=== PATIENT | male | born 2000 | race Caucasian/White ===

== ENCOUNTER 2024-06-01 08:05 | Emergency (ER) | payer OTHER, SELFPAY ==
[2024-06-01 08:09] VITALS: BP 126/69; PULSE 79; RESP 18; TEMP 36.6; O2SAT 99; BMI 29.0
--- NOTE | 2024-06-01 08:51 | ED.GENADULT ---
HPI - General Adult General Time Seen by Provider: 08:51 Date Seen: 06/01/24 Chief complaint: Dizziness/Vertigo Stated complaint: dizziness/loss of balance Time Seen by Provider: 06/01/24 08:51 Source: patient and RN notes reviewed Mode of arrival: ambulatory Limitations: no limitations History of Present Illness HPI narrative: This 23-year-old male is coming into the ER with concern of sense of imbalance. He worked out for an hour yesterday afternoon and started noticing after that that he felt imbalanced, like he might fall. It was not a spinning sensation. He had no associated visual change or headaches. He is not been ill with cough or cold symptoms, no fevers or chills. About 2 weeks ago he had a spell of 2 weeks around Thanksgiving where he was having some blood with wiping. He does note sometimes there was straining. He was not having pain. This is now resolved, he thinks it might have been a hemorrhoid. Again, he has no symptoms now, there was never any associated abdominal pain. He notes a while back with lifting he did get what he thought was a pinched nerve in his left neck we had pain going down the arm some numbness tingling of the shoulder. That did go away. Yesterday was feeling a little tired doing the weights and he was doing arms and pectoralis. He only did 2 sets as he was feeling a little strained in did not want this to happen again. He also notes last night that his left face maybe felt a little funny, not as bad as coming out of anesthesia from the dentist but maybe a little numb tingly sensation. It is maybe just above his eyebrow now. He also notes that he is extremely tired, went to bed at 2:00 a.m. and was awakened at 6:30 a.m. to his roommate typing away. He has felt foggy in his head but notes he took a quiz this morning on his phone and was not anymore foggy than what he normally is. Told nursing staff that his symptoms felt worse with turning is had but again he does not have any spinning sensation, more of an imbalance sense. He thinks his left eye might feel little droopy in comparison to the right, meaning his upper eyelid. In discussion with patient, it did come about that his mom had a glioblastoma of the temporal lobe. She was having headaches, they did catch it and she has subsequently had removed. He notes that all of her follow-up scans have been reassuring. 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 Related Data Allergies Allergy/AdvReac Type Severity Reaction Status Date / Time No Known Allergies Allergy Verified 06/01/24 08:16 Review of Systems Status of ROS: Reports: 6 or more systems reviewed and unremarkable except as noted in History and below Exam Const: Vital Signs, click to edit/add: Vital Signs - 24 hr 06/01/24 08:09 Temperature 97.8 F Pulse Rate [Left] 79 Respiratory Rate 18 Blood Pressure [Ri ght Upper Arm] 126/69 Pulse Oximetry 99 Oxygen Delivery Me thod Room Air This 23-year-old male is alert, interactive, no apparent distress. He can ambulate in the room for me he has normal tandem gait in actually does a backwards tandem gait back to the bed. Pupils are equal round, extraocular muscles intact, no nystagmus. Symmetrical facial function, normal sensation, speech is normal and intact. TMs canals normal, no abnormalities noted. Neck supple, no adenopathy, no thyromegaly masses or nodules. Lungs are clear, good air entry, no wheezing crackles. CV regular rate and rhythm, no murmur, normal S1-S2, no S3-S4. Abdomen is soft, nontender, nondistended, no organomegaly. Skin visualized without rash, no lower extremity edema. He has good muscle tone. Strength is 5/5 and symmetric throughout both upper and lower extremities. He has no tremors. Normal [id number] without any dysmetria. Documenting provider has reviewed patient's vital signs: yes Course Course ED Course: Patient and I discussed workup. Obviously with his mom's history there has to be some concern mass. We did discuss with head CT imaging that it can rule out large things like prior strokes, bleeds, larger tumors. He obviously is going to have some concern given his mom's history. I do think that doing a head CT to rule out acute intracranial pathology is important. We did discuss that if he has ongoing issues, may need MRI imaging to completely rule out pathology in the brain but do not think we need to proceed with this emergently. His neurologic exam is normal, he certainly is tired and can affect are performance in status. I think at this time will do baseline labs given some of his complaints in the recent past and proceed with head CT imaging. He is in agreement with this plan. Reevaluation(s) Time of Reevaluation #1: 10:30 Reevaluation #1: Have reviewed with patient his normal head CT, provided him a copy of the report. Reviewed that labs are not showing any anemia, his hemoglobin looks great. He definitely looks tired, can see dark circles under his eyes. We discussed sleep and sleep hygiene. Patient is certainly can feel lightheaded, woozy, dizzy, many symptoms when fatigued or exhausted. I would favor him trying to catch up on his sleep, see how he is feeling. I do not think he needs further emergent evaluation at this time. Vital Signs Vital signs: Initial Vital Signs Temperature 97.8 F 06/01/24 08:09 Temperature Source Temporal Artery Scan 06/01/24 08:09 Pulse Rate 79 06/01/24 08:09 Respiratory Rate 18 06/01/24 08:09 Blood Pressure 126/69 06/01/24 08:09 Blood Pressure Mean 88 06/01/24 08:09 Blood Pressure Position Sitting 06/01/24 08:09 Pulse Oximetry 99 06/01/24 08:09 Oxygen Delivery Method Room Air 06/01/24 08:09 Vital Signs Temperature 97.8 F 06/01/24 08:09 Pulse Rate 79 06/01/24 08:09 Respiratory Rate 18 06/01/24 08:09 Blood Pressure 126/69 06/01/24 08:09 Pulse Oximetry 99 06/01/24 08:09 Oxygen Delivery Method Room Air 06/01/24 08:09 Temperature 97.8 F 06/01/24 08:09 Pulse Rate 79 06/01/24 08:09 Respiratory Rate 18 06/01/24 08:09 Blood Pressure 126/69 06/01/24 08:09 Pulse Oximetry 99 06/01/24 08:09 Oxygen Delivery Method Room Air 06/01/24 08:09 Medical Decision Making Lab Data Lab results reviewed: Yes I reviewed the patient's lab results Labs: Lab Results 06/01/24 Range/Units 09:30 WBC 7.14 (4.50-11.00) K/uL RBC 5.88 (4.30-5.90) m/uL Hgb 16.7 (13.5-17.5) gm/dL Hct 49.2 (37.0-53.0) % MCV 84 (80-100) fL MCH 28 (26-34) pg MCHC 34 (32-36) gm/dL RDW Coeff of Vidhya 12.4 (11.5-15.5) % Plt Count 337 (140-440) K/uL Neut % (Auto) 71.1 (42.0-72.0) % Lymph % (Auto) 21.6 (20-44) % [place] % (Auto) 5.2 (0.0-11.0) % Eos % (Auto) 1.7 (0.0-7.0) % Baso % (Auto) 0.3 (0.0-3.0) % Neut # (Auto) 5.08 (1.7-7.0) K/uL Lymph # (Auto) 1.54 (0.90-2.90) K/uL [place] # (Auto) 0.40 (0.00-0.90) K/UL Eos # (Auto) 0.12 (0.00-0.50) K/uL Baso # (Auto) 0.02 (0.00-0.30) K/uL Abs Immat Gran (auto) 0.01 (0.00-0.30) K/uL Imm/Tot Granulo (auto) 0.1 % Sodium 141 (135-149) mmol/L Potassium 4.4 (3.6-5.1) mmol/L Chloride 100 (96-114) mmol/L Carbon Dioxide 31 (20-32) mmol/L Anion Gap 10 (7-15) mEq/L BUN 13 (5-24) mg/dL Creatinine 0.9 (0.5-1.5) mg/dL Estimated Creat Clear 121.39 Estimated GFR 125 ml/min Glucose 99 (60-115) mg/dL Calcium 9.8 (8.4-10.6) mg/dL Total Bilirubin 0.7 (0.1-1.5) mg/dL AST 45 H (12-35) U/L ALT 51 H (4-50) U/L Alkaline Phosphatase 72 (40-150) U/L C-Reactive Protein < 0.5 L (0.5-1.0) mg/dL Total Protein 8.0 (6.0-8.3) g/dL Albumin 4.9 (3.3-5.0) g/dL Imaging Data CT scan - head: Attestation: I have reviewed the pertinent imaging results. Radiologist's impression: Patient: KADEN AVELAR Facility:?[facility] Patient ID:?[id number] Site Patient ID:?[id number]. Site :?[id number] Study:?CT-Head WITHOUT-06/01/2024 9:36:26 AM Ordering Physician:?Garrett Brumfield Final Report: INDICATION: Imbalance, dizziness, tingling face and hands. COMPARISON: None. TECHNIQUE: CT of the brain / head without intravenous contrast. Multiplanar axial, coronal, and sagittal reformats were reconstructed. FINDINGS: No intracranial hemorrhage. Normal appearance of the white matter. No acute or subacute cortically based infarct. No mass or mass effect. Normal ventricles. No skull fractures. No worrisome focal bone lesion. IMPRESSION: Normal head CT. Please note that all CT scans at this facility use dose modulation, iterative reconstruction, and/or weight-based dosing when appropriate to reduce radiation dose to as low as reasonably achievable. Dictated by Rebecca Gonzales MD @ 06/01/2024 9:45:03 AM (Electronic Signature) Discharge Plan Discharge Clinical Impression: Imbalance Patient Disposition: Home, Self-Care Condition: Stable Additional Instructions: It is possible that sleep deprivation and fatigue can be contributing to your symptoms. I do think you should continue to monitor symptoms. If you have ongoing issues, concerns about your sleep, you could get referred to a sleep medicine provider through your primary care provider; we do not have sleep medicine here at [facility]. If you have ongoing concerns about her balance or your gait, next step would be to see Neurology and potentially have an MRI done. Continue to monitor for these symptoms in please seek re-evaluation if you have concerns. I do highly urge you to try to get more sleep. Activity Level: Activity as Tolerated Follow Up/Referrals: Provider,Not a Local [Primary Care Provider] - Stand Alone Forms: [employer] Info Instructions
--- NOTE | 2024-06-01 09:10 | CRLHL7_ITS ---
For Patients: As a result of the Century Cures Act, medical imaging exams and procedure reports are released immediately into your electronic medical record. You may view this report before your referring provider. If you have questions, please contact your health care provider. INDICATION: Imbalance, dizziness, tingling face and hands. COMPARISON: None. TECHNIQUE: CT of the brain / head without intravenous contrast. Multiplanar axial, coronal, and sagittal reformats were reconstructed. FINDINGS: No intracranial hemorrhage. Normal appearance of the white matter. No acute or subacute cortically based infarct. No mass or mass effect. Normal ventricles. No skull fractures. No worrisome focal bone lesion. IMPRESSION: Normal head CT. Please note that all CT scans at this facility use dose modulation, iterative reconstruction, and/or weight-based dosing when appropriate to reduce radiation dose to as low as reasonably achievable. Dictated by Rebecca Gonzales MD @ 06/01/2024 9:45:03 AM (Electronically Signed)
[2024-06-01 09:39] LABS: Basophils Absolute Auto 0.02 K/uL (0.00-0.30); Basophils Percent Auto 0.3 % (0.0-3.0); Eosinophils Absolute Auto 0.12 K/uL (0.00-0.50); Eosinophils Percent Auto 1.7 % (0.0-7.0); Hematocrit 49.2 % (37.0-53.0); Hemoglobin* 16.7 gm/dL (13.5-17.5); Immature Granulocytes Abs Auto 0.01 K/uL (0.00-0.30); Immature Granulocytes Pct Auto 0.1 %; Lymphocytes Absolute Auto 1.54 K/uL (0.90-2.90); Lymphocytes Percent Auto 21.6 % (20-44); Mean Corpuscular HGB Conc 34 gm/dL (32-36); Mean Corpuscular Hemoglobin 28 pg (26-34); Mean Corpuscular Volume 84 fL (80-100); Monocytes Percent Auto 5.2 % (0.0-11.0); Neutrophils Absolute Auto 5.08 K/uL (1.7-7.0); Neutrophils Percent Auto 71.1 % (42.0-72.0); Platelet Count* 337 K/uL (140-440); RDW Coefficient of Variation % 12.4 % (11.5-15.5); Red Blood Count 5.88 m/uL (4.30-5.90); White Blood Count* 7.14 K/uL (4.50-11.00)
[2024-06-01 10:11] LABS: Slide Review Reflex No
[2024-06-01 10:15] LABS: Albumin* 4.9 g/dL (3.3-5.0); Chloride* 100 mmol/L (96-114); Potassium* 4.4 mmol/L (3.6-5.1); Sodium* 141 mmol/L (135-149)
[2024-06-01 10:18] LABS: Alanine Aminotransferase* 51 U/L (4-50); Alkaline Phosphatase* 72 U/L (40-150); Anion Gap 10 mEq/L (7-15); Aspartate Amino Transferase* 45 U/L (12-35); Bilirubin Total* 0.7 mg/dL (0.1-1.5); Blood Urea Nitrogen* 13 mg/dL (5-24); Carbon Dioxide* 31 mmol/L (20-32); Creatinine* 0.9 mg/dL (0.5-1.5); Est. Creatinine Clearance* 121.39; Estimated Glomerular Filt Rate 125 ml/min
[2024-06-01 10:19] LABS: Calcium* 9.8 mg/dL (8.4-10.6); Glucose* 99 mg/dL (60-115)
[2024-06-01 10:53] LABS: C Reactive Protein* < 0.5 mg/dL (0.5-1.0)
== END 2024-06-01 10:45 | disposition home or self-care (01) ==
PROVIDERS: Emergency Provider Family Medicine
DX: R26.89 Other abnormalities of gait and mobility (principal)
CPT/HCPCS: 36415; 70450; 80053; 85025; 86140; 99284

== ENCOUNTER 2024-10-15 02:42 | Emergency (ER) | payer OTHER, SELFPAY ==
--- OUTSIDE RECORDS SUMMARY | 2024-10-15 02:45 | XMS_ITS | Continuity of Care Document ---
Author Organization [facility] Address [address] [place] [address] Assessment No assessment recorded. Plan of Treatment Reminders Order Date Submit Date Provider Last Modified By Organization Details Last Modified Time Details Appointments None record ed. Lab None record ed. Referral None record ed. Procedures None record ed. Surgeries None record ed. Imaging None record ed. Medication Orders None record ed. Patient TargetsNo targets recorded. Patient InstructionsNo instructions recorded. Reason for Referral None Reported. Problems Name Problem SNOMED Code Status Onset Date Resolution Date Notes Provider Name and Address Organization Details Recorded Time Pain in thoracic spine 432143828 Active 2024 LD [address], [place], [address], [facility] 12:47:44 Neck pain 51165776 Active 2024 Xavier Avalos DC [address] [place], [address], [facility] 12:47:44 Spasm of back muscles 919283683 Active 2024 Xavier Avalos DC [address] [place], [address] , [facility] 12:47:44 Cervical segmental dysfunction 642351194 Active 2024 Xavier Avalos DC [address] [place], [address], [facility] 12:47:44 Low back pain 749550970 Active 2024 Xavier Avalos DC [address], [place], [address], [facility] 12:47:44 Thoracic segmental dysfunction 632523632 Active 2024 Xavier Avalos , LD [address], [place], [address], [facility] 12:47:44 Lumbar segmental dysfunction 687748787 Active 2024 Xavier Avalos , LD [address], [place], [address], [facility] 12:47:45 Somatic dysfunction of pelvic region 971764807 Active 2024 Xavier Avalos DC [address], [place], [address], [facility] 12:48:09 Pain of right wrist 2713339434460 00 Active 2024 Xavier Avalos , LD [address], [place], [address], [facility] 12:48:18 Problem Notes None recorded. Procedures Surgical History Date Name Laterality Status Provider Name and Address Organization Details Recorded Time 09/23/19 14611: Spinal manipulation, 3 to 4 regions completed LD Adams[address], [place], [address], [facility] 09/22/2024 10:50:11 09/23/19 25 31987: Non-spinal manipulation completed LD Adams[address], [place], [address], [facility] 09/22/2024 10:50:11 09/23/19 25 63249: Electrical Stimulation (unattended) completed LD Adams[address], [place], [address], [facility] 09/22/2024 10:50:10 09/23/19 25 82418: Therapeutic Exercise completed LD Adams[address], [place], [address], [facility] 09/22/2024 18:01:03 09/19/19 15943: Spinal manipulation, 3 to 4 regions completed Xavier Avalos, DC [address], [place], [address], [facility] 09/18/2024 12:53:42 09/19/19 65539: Non-spinal manipulation completed Xavier Avalos, LD [address], [place], [address], [facility] 09/18/2024 12:54:16 09/19/19 37411: New patient E/M completed Xavier Avalos, LD [address], [place], [address], [facility] 09/18/2024 12:53:36 09/19/19 49754: Electrical Stimulation (unattended) completed Xavier Avalos, LD [address], [place], [address], [facility] 09/18/2024 12:53:51 Imaging Results None recorded. Procedure Notes None recorded. Medical Equipment None Reported. Medications Name Sig Start Date Stop Date Status Note LastModified by Organization Details LastModified Time doxycycline hyclate 100 mg capsule TAKE 1 CAPSULE BY MOUTH TWICE DAILY FOR 5 DAYS active Not Available Not Available No t Available clindamycin 1 % topical gel APPLY TOPICALLY TO AFFECTED AREA TWICE A DAY active Not Available Not Available No t Available dextroampheta mine-amphetam ine ER 20 mg 24hr capsule,exten d release TAKE 2 CAPSULES BY MOUTH ONCE DAILY. active Not Available Not Available No t Available guanfacine 2 mg tablet TAKE 1 TABLET BY MOUTH ONCE DAILY. active Not Available Not Available No t Available dextroampheta mine-amphetam ine 5 mg tablet TAKE 1 TABLET (5 MG) BY MOUTH ONCE DAILY. IN THE AFTERNOON active Not Available Not Available No t Available Vitals None Recorded Social History None recorded. Functional Status None recorded. Mental Status None recorded. Family History Nothing Reported. Medical History No medical history recorded. Past Encounters Encounter ID Performer Location Encounter Start Date Encounter Closed Date Diagnosis/Indication Diagnosis SNOMED-CT Code Diagnosis ICD10 Code Diagnosis Note [id number] Xavier Avalos DC [facility] [address] [place] [address] 09/18/2024 10:44:30 09/18/2024 19:50:07 Cervical segmental dysfunction 864576197 M99.01 Neck pain 16844416 M54.2 Lumbar seg mental dysfunction 365447073 M99.03 Thoracic s egmental dysfunction 734063946 M99.02 Pain in th oracic spine 445217982 M54.6 Somatic dy sfunction of pelvic region 310115643 M99.05 Pain of right wrist 3169 804265 11549 M25.[id number] [facility] [address] [place] [address] 09/22/2024 10:42:46 09/25/2024 13:25:04 Neck pain 88144622 M54.2 Pain in th oracic spine 241458743 M54.6 Lumbar seg mental dysfunction 966440715 M99.03 Pain of right wrist 3169 056886 92244 M25.531 Somatic dy sfunction of pelvic region 129937997 M99.05 Thoracic s egmental dysfunction 795846739 M99.02 Cervical s egmental dysfunction 650209709 M99.01 Health Concerns Section Related Observation LastModified by Organization Detai ls LastModified Time None Recorded Concern Status LastModified by Organization Details LastModified Time None Recorded Payers Encounter Date Sequence Insurance Name Policy Number Policy Burris Covered Member ID Burris Member ID Guarantor Name 09/22/2024 [facility] [id number] Zen Moise Notes Date Note Type Note Provider Name and Address Organization Details Recorded Time 09/22/2024 text/html HPI - Spine ComplaintsReported bypatient.Location:cerv ical ; thoracic ; lumbar ; sacral Quality:dull; stiffness; tightness Severity:improving;pain level 3/10 Duration:few weeks Timing:acute Context:atraumatic; overuse Alleviating Factors:nonsteroidal anti-inflammatory; stretching Aggravating Factors:sitting; school work, computer use, video games Previous Injury:no prior back injury; no prior malignancy Prior Imaging:none Xavier Avalos DC [address] , [place], [address], [facility] 09/22/2024 18:09:56
--- OUTSIDE RECORDS SUMMARY | 2024-10-15 02:45 | XMS_ITS | Data Portability ---
Author Organization [employer] [facility] Address [address] [place] [address] Assessment No assessment recorded. Plan of Treatment [...] Details Recorded Time Pain in thoracic spine 403677188 Active 2024 Xavier Avalos DC [address], [place], [address] , [facility] 12:47:44 Neck pain 25907002 Active 2024 Xavier Avalos DC [address], [place], [address] , [facility] 12:47:44 Spasm of back muscles 278944817 Active 2024 Xavier Avalos DC [address] [place], [address] , [facility] 12:47:44 Cervical segmental dysfunction 693532362 Active 2024 Xavier Avalos DC [address], [place], [address] , [facility] 5 12:47:44 Low back pain 458120559 Active 2024 Xavier Avalos DC [address], [place], [address], [facility] 12:47:44 Thoracic segmental dysfunction 679866219 Active 2024 Xavier Avalos DC [address], [place], [address], [facility] 12:47:44 Lumbar segmental dysfunction 711965320 Active [address], [place], [address], [facility] 12:47:45 Somatic dysfunction of pelvic region 479931332 Active [address], [place], [address], [facility] 12:48:09 Pain of right wrist 7093907725706 00 Active [address], [place], [address], [facility] 12:48:18 Problem Notes None recorded. Procedures Surgical History Date Name Laterality Status Provider Name and Address Organization Details Recorded Time 09/23/19 15045: Spinal manipulation, 3 to 4 regions completed LD [address], [place], [address], [facility] 09/22/2024 10:50:11 09/23/19 25 05031: Non-spinal manipulation completed LD Adams[address], [place], [address], [facility] 09/22/2024 10:50:11 09/23/19 25 21153: Electrical Stimulation (unattended) completed LD Adams[address], [place], [address], [facility] 09/22/2024 10:50:10 09/23/19 25 86338: Therapeutic Exercise completed LD [address], [place], [address], [facility] 09/22/2024 18:01:03 09/19/19 62767: Spinal manipulation, 3 to 4 regions completed Xavier Avalos, DC [address], [place], [address], [facility] 09/18/2024 12:53:42 09/19/19 38985: Non-spinal manipulation completed Xavier Mullere, DC [address], [place], [address], [facility] 09/18/2024 12:54:16 09/19/19 55710: New patient E/M completed Xavier Mullere, DC [address], [place], [address], [facility] 09/18/2024 12:53:36 09/19/19 50334: Electrical Stimulation (unattended) completed Xavier Avalos, DC [address], [place], [address], [facility] 09/18/2024 12:53:51 Imaging Results None recorded. [...] SNOMED-CT Code Diagnosis ICD10 Code Diagnosis Note [id number] Xavier Avalos DC [facility] [address] [place] [address] 09/18/2024 10:44:30 09/18/2024 19:50:07 Cervical segmental dysfunction 613917142 M99.01 Neck pain 09689757 M54.2 Lumbar seg mental dysfunction 128125733 M99.03 Thoracic s egmental dysfunction 183838870 M99.02 Pain in th oracic spine 396362742 M54.6 Somatic dy sfunction of pelvic region 162401251 M99.05 Pain of right wrist 3169 876742 71761 M25.531 [id number] Xavier Avalos DC [facility] [address] [place] [address] 09/22/2024 10:42:46 09/25/2024 13:25:04 Neck pain 63271402 M54.2 Pain in th oracic spine 830029257 M54.6 Lumbar seg mental dysfunction 808823421 M99.03 Pain of right wrist 3169 204110 80853 M25.531 Somatic dy sfunction of pelvic region 216121021 M99.05 Thoracic s egmental dysfunction 207269100 M99.02 Cervical s egmental dysfunction 231408417 M99.01 Health Concerns Section Related Observation LastModified by Organization Detai ls LastModified Time None Recorded Concern Status LastModified by Organization Details LastModified Time None Recorded Advance Directives Directive None Recorded Payers Encounter Date Sequence Insurance Name Policy Number Policy Burris Covered Member ID Burris Member ID Guarantor Name 09/18/2024 [facility] [id number] Zen Moise 09/22/2024 [facility] [id number] [facility] Notes Date Note Type Note Provider Name and Address Organization Details Recorded Time 09/18/2024 text/html HPI - Spine ComplaintsReported bypatient.Location:cerv ical ; thoracic ; lumbar ; sacral Quality:dull; stiffness; tightness Severity:worsening;pain level 5/10 Duration:few weeks Timing:acute Context:atraumatic; overuse Alleviating Factors:nonsteroidal anti-inflammatory; stretching Aggravating Factors:sitting; school work, computer use, video games Previous Injury:no prior back injury; no prior malignancy Prior Imaging:none LD Adams, [place], [address], [facility] 09/18/2024 12:56:27 09/22/2024 text/html HPI - Spine ComplaintsReported bypatient.Location:cerv ical ; thoracic ; lumbar ; sacral Quality:dull; stiffness; tightness Severity:improving;pain level 3/10 Duration:few weeks Timing:acute Context:atraumatic; overuse Alleviating Factors:nonsteroidal anti-inflammatory; stretching Aggravating Factors:sitting; school work, computer use, video games Previous Injury:no prior back injury; no prior malignancy Prior Imaging:none LD Adams, [place], [address], [facility] 09/22/2024 18:09:56
--- OUTSIDE RECORDS SUMMARY | 2024-10-15 02:45 | XMS_ITS | Continuity of Care Document ---
Author Organization [facility] EVELYN [facility] Address [address] [place] [address] Assessment No assessment recorded. Plan of Treatment [...] Details Recorded Time Pain in thoracic spine 946837834 Active 2024 LD [address], [place], [address], [facility] 12:47:44 Neck pain 24918794 Active 2024 Xavier Avalos DC [address] [place], [address], [facility] 12:47:44 Spasm of back muscles 342738354 Active 2024 Xavier Avalos DC [address] [place], [address] , [facility] 12:47:44 Cervical segmental dysfunction 460366964 Active 2024 Xavier Avalos DC [address] [place], [address], [facility] 12:47:44 Low back pain 364561934 Active 2024 Xavier Avalos DC [address], [place], [address], [facility] 12:47:44 Thoracic segmental dysfunction 373782464 Active 2024 Xavier Avalos , LD [address], [place], [address], [facility] 12:47:44 Lumbar segmental dysfunction 332878234 Active 2024 Xavier Avalos , LD [address], [place], [address], [facility] 12:47:45 Somatic dysfunction of pelvic region 374492480 Active 2024 Xavier Avalos DC [address], [place], [address], [facility] 12:48:09 Pain of right wrist 5361243611154 00 Active 2024 Xavier Avalos , LD [address], [place], [address], [facility] 12:48:18 Problem Notes None recorded. Procedures Surgical History Date Name Laterality Status Provider Name and Address Organization Details Recorded Time 09/23/19 98404: Spinal manipulation, 3 to 4 regions completed LD Adams[address], [place], [address], [facility] 09/22/2024 10:50:11 09/23/19 25 [address]59: Non-spinal manipulation completed LD Adams[address], [place], [address], [facility] 09/22/2024 10:50:11 09/23/19 25 08838: Electrical Stimulation (unattended) completed LD Adams[address], [place], [address], [facility] 09/22/2024 10:50:10 09/23/19 25 [address]887: Therapeutic Exercise completed LD Adams[address], [place], [address], [employer] [facility] [employer] 09/22/2024 18:01:03 09/19/19 74857: Spinal manipulation, 3 to 4 regions completed Xavier Avalos, DC [address], [place], [address], [facility] [employer] [facility] 09/18/2024 12:53:42 09/19/19 87984: Non-spinal manipulation completed Xavier Avalos, LD [address], [place], [address], [facility] [employer] [facility] 09/18/2024 12:54:16 09/19/19 49388: New patient E/M completed Xavier Avalos, LD [address], [place], [address], [facility] [employer] [facility] 09/18/2024 12:53:36 09/19/19 05916: Electrical Stimulation (unattended) completed Xavier Avalos, LD [address], [place], [address], [employer] [facility] 09/18/2024 12:53:51 Imaging Results None recorded. Procedure [...] SNOMED-CT Code Diagnosis ICD10 Code Diagnosis Note [id number] LD Adams [facility] [address] [place] [address] 09/18/2024 10:44:30 09/18/2024 19:50:07 Cervical segmental dysfunction 552042014 M99.01 Neck pain 60662074 M54.2 Lumbar seg mental dysfunction 485031066 M99.03 Thoracic s egmental dysfunction 130695466 M99.02 Pain in th oracic spine 227067696 M54.6 Somatic dy sfunction of pelvic region 979300978 M99.05 Pain of right wrist 3169 178207 13953 M25.531 Health Concerns Section Related Observation LastModified by Organization Detai ls LastModified Time None Recorded Concern Status LastModified by Organization Details LastModified Time None Recorded Payers Encounter Date Sequence Insurance Name Policy Number Policy Burris Covered Member ID Burris Member ID Guarantor Name 09/18/2024 [facility] [id number] [facility] Notes Date Note Type Note Provider Name [...] malignancy Prior Imaging:none Xavier Avalos DC [address] [place], [address], [facility] 09/18/2024 12:56:27
--- OUTSIDE RECORDS SUMMARY | 2024-10-15 02:45 | XMS_ITS | Clinical Summary ---
Author Organization [facility] Address [address] [place] [address]. 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
--- OUTSIDE RECORDS SUMMARY | 2024-10-15 02:45 | XMS_ITS | Clinical Summary ---
Author Organization [facility] Address [address] [place] [address] Care Team Providers Care Frozen Pie Maker Name Role Phone Yehuda Villegas MD Primary Care Provider Allergies Active Allergy Reactions Criticality Noted Date Comments Cefprozil Hives 12/22/2010 Medications dextroamphetamine -amphetamine (AdderalL) 5 mg tabletIndications :ADHD (attention deficit hyperactivity disorder), combined type Take 1 Tablet (5 mg) by mouth once daily. In the afternoon 30 Tablet 4 Active clindamycin 1 % gelIndications:Ac ne, mild Apply topically to affected area(s) two times daily. 60 g 11 4 Active guanFACINE 2 mg tabletIndications :ADHD (attention deficit hyperactivity disorder), combined type TAKE 1 TABLET BY MOUTH ONCE DAILY. 30 Tablet 11 4 Active dextroamphetamine -amphetamine (Adderall XR) 20 mg Extended-Release capsuleIndication s:ADHD (attention deficit hyperactivity disorder), combined type Take 2 Capsules (40 mg) by mouth once daily. 60 Capsule 5 11/04/19 25 Active dextroamphetamine -amphetamine (Adderall XR) 20 mg Extended-Release capsuleIndication s:ADHD (attention deficit hyperactivity disorder), combined type Take 2 Capsules (40 mg) by mouth once daily. 60 Capsule 5 Active dextroamphetamine -amphetamine (Adderall XR) 20 mg Extended-Release capsuleIndication s:ADHD (attention deficit hyperactivity disorder), combined type Take 2 Capsules (40 mg) by mouth once daily. 60 Capsule 5 10/05/19 25 Active Problems Problem Noted Date Diagnosed Date ADHD (attention deficit hype ractivity disorder), combined type 02/17/2023 Autism spectrum disorder 02/17/2023 Immunizations Immunization Administration Dates Next Due COVID-19 VACCINE SPIKEVAX (M ODERNA 50MCG/0.5ML) 12YO+ PFS 04/04/2024 DTaP 06/22/2007, 4,2002,08/21 [id number] (Pediarix) 2002 HIB-HepB (Comvax) 09/26/2003,2002,08/22/19 03 HPV 9 (Gardasil 9) 06/20/2015 Hepatitis A (Peds) 06/20/2015,11/22/2014 Human Papilloma Virus Vaccine 02/04/2015, 015 INFLUENZA, IIV3 PF (AGE >= 6 MO) 04/04/2024 Inactivated Polio Vaccine 06/22/2007,2002, 2002 Influenza A (H1N1), Inactivated 06/26/2009,05/30 Influenza, IIV3 (Age 6-35 mos) 06/12/2016,2008 Influenza, IIV3 (Age >=3 years) 05/29/2008,04/16 Influenza, IIV4 05/15/2022, 1,06/26/2019,08/16,05/23/2014,05/17/2013 Influenza,CCIIV4 PRESERV FREE 04/13/2020 Influenza,LAIV3 Live Intrana mark (Flumist) 05/16/2012 Influenza,LAIV4 Live Intrana mark (Flumist) 06/20/2015 MENINGOCOCCAL VACCINE 2 VIAL 2MO-55YO (MENVEO) 08/16/2018 MMR 06/28/2003 MMRV 06/24/2006 Meningococcal Vaccine (Menactra) 11/22/2014 Pneumococcal conj 7-Valent (Prevnar 7) 0 06/28/2003,2002,2002,08/21 Tdap 11/22/2014 Varicella Vaccine 06/28/2003 Family History Medical History Relation Name Comments Depression Father Relation Name Status Comments Father Social History Tobacco Use Types Packs/Day Years Used Date Smoking Tobacco: Never Smokeless Tobacco: Never Tobacco Cessation:Counseling Given: Yes Alcohol Use Standard Drinks/Week Comments Yes 0 (1 standard drink = 0.6 oz pur e alcohol) rare PHQ-2 Answer Date Recorded PHQ-2 TOTAL SCORE 1 04/04/2024 Social Connections Answer Date Recorded Do you often feel lonely or isolated from those around you? 0 04/04/2024 Financial Resource Strain Answer Date R ecorded Difficulty of Paying Living Expenses 3 04/04/2024 Difficulty of Paying Living Expenses Not on file 04/04/2024 Food Insecurity Answer Date Recorded Do you worry your food will run out before you are able to buy more? 1 04/04/2024 Transportation Needs Answer Date Record ed Does lack of transportation keep you from medica l appointments? 1 04/04/2024 Does lack of transportation keep you from work, meetings or getting things that you need? 2 04/04/2024 Housing Stability Answer Date Recorded What is your housing situation today? 1 04/04/2024 Utilities Answer Date Recorded Do you have trouble paying f or utilities (for example, heat, electricity, water, phone)? 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 Gender Identity Not on file Sexual Orientation Not on file Obstetrics History Last Filed Vital Signs Vital Sign Reading Time Taken Comments Blood Pressure 116/60 04/04/2024 9:36 AM CDT Pulse 78 04/04/2024 9:36 AM CDT Temperature 37.1 C (98.7 F) 12/22/2010 1:59 PM CDT Respiratory Rate 14 09/15/2023 3:23 PM CDT Oxygen Saturation 98% 09/15/2023 3:23 PM CDT Inhaled Oxygen Concentration - - Weight 85 kg (187 lb 4.8 oz) 04/04/2024 9:36 AM CDT Height 171.5 cm (5' 7.52) 04/04/2024 9:36 AM CD T Body Mass Index 28.89 04/04/2024 9:36 AM CDT Plan of Treatment Health Maintenance Due Date Last Done Comments Tetanus booster 11/22/2024 11/22/2014 BMI (ht and wt on same day) for age 18+ 04/04/2025 04/04/2024, 09/15/2023, 02/17/2023 Depression screening for age 12+ 04/04/2025 04/04/2024, 02/17/2023 Pneumococcal series for age 6-49 Aged Out 06/28/2003, 2002, 2002, Additional history exists No longer eligible based on patient's age to complete this topic Tdap Completed 11/22/2014 HPV series for age 9-26 Completed 06/20/20 15, 02/04/2015, 11/22/2014 HIV for age 15-65 Completed 02/17/2023 Hepatitis C screening for age 18-79 Completed 02/17/2023 COVID-19 vaccine series Completed 04/04/20 24, 07/23/2023, 04/05/2022, Additional history exists Influenza Vaccine Completed 04/04/2024, , 04/07/2021, Additional history exists Procedures Procedure Name Priority Date/Time Associated Diagnosis Comments ANTI HIV 1/2 Routine 02/17/2023 9:50 AM CDT Screening for HIV (human immunodeficiency virus) ANTI HCV Routine 02/17/2023 9:50 AM CDT Encounter for hepatitis C screening test for low risk patient from Last 3 Months or Most Recently Relevant to Health Maintenance Results * ANTI HCV (02/17/2023 9:50 AM CDT) HEPATITIS C ANTIBODY Non-Reacti ve Non-React anjali 02/19/2023 2:02 PM CDT [facility] Comment:Please note, per www .CDC.gov: If a patient is known to be at high risk of HCV infection, or is symptomatic, and the physician's suspicion of HCV infection is high, HCV RNA testing is often employed and is of diagnostic value, even after an initial negative anti-HCV test result. Blood BLOOD SPECIMEN / Unknown Venipuncture / Unknown 02/17/2023 9:50 AM CDT 02/17/2023 9:53 AM CDT us Yehuda Villegas MD SEND OUTS Final Result [facility] S[address]OUT [place] [id number] [address] [place] [address] * ANTI HIV 1/2 (02/17/2023 9:50 AM CDT) HIV-1/HIV-2 SCREEN Non-Reacti ve Non-Reacti ve 02/18/2023 4:30 PM [address] [facility] Comment:HIV-1 p24 and HIV-1/ HIV-2 Ab Not Detected. Blood BLOOD SPECIMEN / Unknown Venipuncture / Unknown 02/17/2023 9:50 AM CDT 02/17/2023 9:53 AM CDT Yehuda Villegas MD SEND OUTS Final Result [facility] [address] [place] [address], from Last 3 Months or Most Recently Relevant to Health Maintenance Insurance [place] [id number] Care Teams Frozen Pie Maker Relationship Specialty Start Date End Date Yehuda Villegas MD [address] [place], [place] [id number] PCP - General Internal Medicine 02/17/23
[2024-10-15 02:46] VITALS: BP 117/83; PULSE 82; RESP 16; TEMP 36.1; O2SAT 98; BMI 29.8
--- NOTE | 2024-10-15 03:16 | ED_ITS ---
HPI - General Adult General Chief complaint: GI Bleed Stated complaint: shortness of breath Time Seen by Provider: 10/15/24 02:43 Source: patient Mode of arrival: ambulatory Limitations: no limitations History of Present Illness HPI narrative: Anxious 24-year-old male presents to the emergency department for evaluation of sudden onset of shortness of breath that he thinks is related to too much blood loss from GI bleeding. This is been going on for weeks and he has scant amounts of blood with wiping or just after a bowel movement. No spontaneous bleeding. He does feel a small out puffing on the perirectal area and suspect that he might have a hemorrhoid. He woke up with a feeling of panic and feeling of shortness of breath but denies anxiety. Noted to be breathing normally in triage with normal oxygen levels of course. He has no history of chronic lung disease but reports that he has had some mild cough for the last few days, no fever. No history of chronic lung disease. No history of asthma. He has not made a follow-up appointment with his primary care doctor to discuss the bleeding, does not use any anticoagulants. Denies any rectal intercourse, trauma. No fecal incontinence. No history of bleeding or blood clotting disorder. No exertional symptoms. Past medical history notable for ADHD. Home meds reviewed. Allergy to cefprozil which caused hives. Nonsmoker. ROS is notable for the GI and dyspnea as stated above otherwise denies times 12 systems. Related Data Home Medications ?Medication ?Instructions ?Recorded ?Confirmed dextroamphetamine-amphetamine ER 20 mg PO QAM 09/04/24 09/04/24 20 mg 24hr capsule,extend release (Adderall XR) melatonin 3 mg capsule 3 mg PO ONCE 09/04/24 09/04/24 Previous Rx's ?Medication ?Instructions ?Recorded docusate calcium 240 mg capsule 240 mg PO DAILY #30 caps 10/15/24 Allergies Allergy/AdvReac Type Severity Reaction Status Date / Time cefprozil (From Cefzil) Allergy Intermediate Hives Verified 09/04/24 12:18 PFSH PFS Social History Smoking Status: Never smoker How often do you have a drink containing alcohol: never How often do you have six or more drinks on one occasion: Never AUDIT-C Alcohol total score: 0 Non-prescribed substance use: denies use service: No Exam Const: Vital Signs, click to edit/add: Vital Signs - 24 hr 10/15/24 02:46 Temperature 97.0 F L Pulse Rate [Left P ulse Oximeter] 82 Respiratory Rate 16 Blood Pressure [Ri ght Upper Arm] 117/83 Pulse Oximetry 98 Oxygen Delivery Me thod Room Air Documenting provider has reviewed patient's vital signs: yes Common normals: alert Other: Mildly anxious but redirectable. Insight seems pretty good. Thought process is logical. Well nourished, well hydrated, nontoxic. HENMT: Common normals: normocephalic and moist oral mucous membranes Head and scalp: normocephalic Mouth: oral and palatal mucosa normal Eye: Common normals: conjunctivae normal General eye: normal appearance of both eyes Conjunctiva: conjunctiva(e) normal Neck & C-Spine: Common normals: no lymphadenopathy General: normal visual inspection Resp: Common normals: normal respiratory effort and no use of accessory muscles Effort & inspection: able to speak in complete sentences Cardio: Common normals: regular rate, regular rhythm, S1 normal heart sound, S2 normal heart sound and no murmurs Rate: regular rate Rhythm: regular rhythm Heart sounds: S1 normal and S2 normal GI: Common normals: Normal to inspection, nondistended, normoactive bowel sounds present, soft to palpation, non-tender, no hepatosplenomegaly and no masses Palpation: soft and no hepatosplenomegaly Other: Very small external hemorrhoid at 6:00 a.m. position. Tiny associated anal fissure just to the left of the hemorrhoid. Internal exam showing no evidence of mass. The external hemorrhoid only tracks in slightly, does not course beyond the dentate line. No areas of abrasions or salt, no stool or blood noted in the rectal vault. Extremity: Common normals: normal to inspection and normal capillary refill Neuro: Common normals: moves all extremities Sensorium/orientation: alert Motor exam: no movement abnormalities noted Psych: Activity/motor behavior: appropriate eye contact Insight: fair Judgement: fair Skin: Common normals: no rashes or lesions noted General skin exam: no rashes or lesions noted Course Course ED Course: 24-year-old male with sensation of dyspnea, likely anxiety related. No hypoxia, no tachypnea, clear exam. I do not recommend further workup for a pulmonary source. Reported weeks of intermittent GI bleeding only with bowel movements, not every bowel movement and no spontaneous bleeding. I doubt that the patient has any severe anemia from this but because of the reported dyspnea, I would recommend hemoglobin level. Counseled patient that the small external hemorrhoid is most likely the source of the bleeding but since symptoms have been present for more than a couple of weeks I would recommend that he follow-up with his primary care provider to discuss screening colonoscopy if a short course of stool softeners is not effective. Would recommend stool softener once daily for the next 2-3 weeks in the interim. Alarm symptoms reviewed that would warrant ED presentation including severe bleeding, spontaneous bleeding. Encouraged him to consider a fitness watch for tracking his heart rate, oxygen levels etc. to give him some hints if his shortness of breath is valid. Consider exertional verses rest symptoms. They are very few dangerous causes of dyspnea that do not worsen on exertion. That can be a good radar for emergent evaluation as well. Written instructions provided. Alarm symptoms reviewed. Reevaluation(s) Time of Reevaluation #1: 03:39 Reevaluation #1: Counseled patient on normal hemoglobin. Vitals remained stable, he is asymptomatic. See discharge instructions. Vital Signs Vital signs: Initial Vital Signs Temperature 97.0 F L 10/15/24 02:46 Temperature Source Temporal Artery Scan 10/15/24 02:46 Pulse Rate 82 10/15/24 02:46 Pulse Rhythm Regular 10/15/24 02:46 Respiratory Rate 16 10/15/24 02:46 Blood Pressure 117/83 10/15/24 02:46 Blood Pressure Mean 94 10/15/24 02:46 Blood Pressure Position Sitting 10/15/24 02:46 Pulse Oximetry 98 10/15/24 02:46 Oxygen Delivery Method Room Air 10/15/24 02:46 Vital Signs Temperature 97.0 F L 10/15/24 02:46 Pulse Rate 82 10/15/24 02:46 Respiratory Rate 16 10/15/24 02:46 Blood Pressure 117/83 10/15/24 02:46 Pulse Oximetry 98 10/15/24 02:46 Oxygen Delivery Method Room Air 10/15/24 02:46 Temperature 97.0 F L 10/15/24 02:46 Pulse Rate 82 10/15/24 02:46 Respiratory Rate 16 10/15/24 02:46 Blood Pressure 117/83 10/15/24 02:46 Pulse Oximetry 98 10/15/24 02:46 Oxygen Delivery Method Room Air 10/15/24 02:46 Medical Decision Making Lab Data Lab results reviewed: Yes I reviewed the patient's lab results Lab results narrative: Reassuring, as expected Labs: Lab Results 10/15/24 Range/Units 03:20 Hgb 14.6 (13.5-17.5) gm/dL Discharge Plan Discharge Clinical Impression: External hemorrhoids without complication, Panic attack Patient Disposition: Home, Self-Care Condition: Improved Instructions: Rectal Bleeding (ED) Additional Instructions: As we discussed, this intermittent rectal bleeding that your having seems to be from a safe source. There seems to be a very small external hemorrhoid. These are very common. I am going to put you on a stool softener medication, this is available [id number] is well known as docusate. This will help soften the stools to reduce straining in typically does clear up the symptoms within about a month or so. If you have persistent symptoms, I would recommend that you make a follow-up appointment with a primary care provider to discuss a colonoscopy. This is not urgent. There is no evidence of severe bleeding. Your hemoglobin is nearly 15. This is a reassuring sign that you are not losing too much blood. As far as the shortness of breath is concerned, your oxygen levels, breathing rate, lung exam and heart rate are excellent. A good indicator for dangerous causes of shortness of breath would be to really check in with herself and see if they are worse at rest or worse on exertion. If they seem worse at rest and do not worsen on exertion meaning walking to your car, going to the bathroom, they are less likely to be from a dangerous source. Consider using a smart watch or even a store bought pulse oximeter to check in with your heart rate and oxygen levels prior to use of in emergency department for shortness of breath. Follow-up with your primary care provider if her symptoms are still bothersome to you and do not relieve as expected. Activity Level: No Restrictions Discharge Diet: Regular Prescriptions: New docusate calcium 240 mg capsule 240 mg PO DAILY Qty: 30 1RF No Action dextroamphetamine-amphetamine [Adderall XR] 20 mg capsule,extended release 24hr 20 mg PO QAM melatonin 3 mg capsule 3 mg PO ONCE Follow Up/Referrals: Provider,Not a Local [Primary Care Provider] - Stand Alone Forms: [employer] Info Instructions
--- OUTSIDE RECORDS SUMMARY | 2024-10-15 03:18 | XMS_ITS | Clinical Summary ---
Author Organization [facility] Address [address] [place] [address]. 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
--- OUTSIDE RECORDS SUMMARY | 2024-10-15 03:18 | XMS_ITS | Clinical Summary ---
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 Blood BLOOD SPECIMEN / Unknown Venipuncture / Unknown 02/17/2023 9:50 AM CDT 02/17/2023 9:53 AM CDT Yehuda Villegas MD SEND OUTS Final Result [facility] [address] [place] [address], from Last 3 Months or Most Recently Relevant to Health Maintenance Insurance [employer] [place] [id number] Care Teams Manager Of Hospital Relationship Specialty Start Date End Date Yehuda Villegas MD [address] [place], [place] [id number] PCP - General Internal Medicine 02/17/23
[2024-10-15 03:25] LABS: Hemoglobin* 14.6 gm/dL (13.5-17.5)
[2024-10-15 03:43] VITALS: PULSE 84; RESP 16; O2SAT 98
== END 2024-10-15 03:59 | disposition home or self-care (01) ==
PROVIDERS: Emergency Provider Family Medicine
DX: K64.8 Other hemorrhoids (principal); F41.0 Panic disorder [episodic paroxysmal anxiety]
CPT/HCPCS: 36415; 85018; 99284

== ENCOUNTER 2024-10-24 04:51 | Emergency (ER) | payer OTHER, SELFPAY ==
--- OUTSIDE RECORDS SUMMARY | 2024-10-24 04:54 | XMS_ITS | Data Portability ---
Author Organization [employer] [facility] [employer] [facility] Address [address] [place] [address] Assessment No assessment recorded. Plan of Treatment [...] Details Recorded Time Pain in thoracic spine 092810366 Active 2024 Xavier Avalos DC [address], [place], [address], [facility] 12:47:44 Neck pain 91004867 Active 2024 Xavier Avalos DC [address], [place], [address] , [facility] 5 12:47:44 Spasm of back muscles 076855866 Active 2024 Xavier Avalos DC [address], [place], [address] , [facility] 12:47:44 Cervical segmental dysfunction 576159899 Active 2024 Xavier Avalos DC [address], [place], [address] , [facility] 5 12:47:44 Low back pain 239654637 Active 2024 Xavier Avalos DC [address], [place], [address], [facility] 12:47:44 Thoracic segmental dysfunction 307849972 Active 2024 Xavier Avalos DC [address], [place], [address], [facility] 12:47:44 Lumbar segmental dysfunction 711034205 Active [address], [place], [address], [facility] 12:47:45 Somatic dysfunction of pelvic region 449624209 Active [address], [place], [address], [facility] 12:48:09 Pain of right wrist 8727696877933 00 Active [address], [place], [address], [facility] 12:48:18 Problem Notes None recorded. Procedures Surgical History Date Name Laterality Status Provider Name and Address Organization Details Recorded Time 09/23/19 44746: Spinal manipulation, 3 to 4 regions completed LD Adams[address], [place], [address], [facility] 09/22/2024 10:50:11 09/23/19 25 06214: Non-spinal manipulation completed LD Adams[address], [place], [address], [facility] 09/22/2024 10:50:11 09/23/19 25 68762: Electrical Stimulation (unattended) completed LD Adams[address], [place], [address], [facility] 09/22/2024 10:50:10 09/23/19 25 78279: Therapeutic Exercise completed LD Adams S, [place], [address], [facility] 09/22/2024 18:01:03 09/19/19 09994: Spinal manipulation, 3 to 4 regions completed Xavier Avalos, DC [address], [place], [address], [facility] 09/18/2024 12:53:42 09/19/19 96264: Non-spinal manipulation completed Xavier Mullere, DC [address], [place], [address], [facility] [employer] [facility] 09/18/2024 12:54:16 09/19/19 60954: New patient E/M completed Xavier Mullere, DC [address], [place], [address], [facility] 09/18/2024 12:53:36 09/19/19 10094: Electrical Stimulation (unattended) completed Xavier Avalos, DC [address], [place], [address], [facility] [employer] [facility] 09/18/2024 12:53:51 Imaging Results None recorded. Procedure [...] SNOMED-CT Code Diagnosis ICD10 Code Diagnosis Note [id number] Xavier Avalos DC [facility] [address] [place] [address] 09/18/2024 10:44:30 09/18/2024 19:50:07 Cervical segmental dysfunction 294378073 M99.01 Neck pain 24915410 M54.2 Lumbar seg mental dysfunction 357620845 M99.03 Thoracic s egmental dysfunction 932456577 M99.02 Pain in th oracic spine 238032853 M54.6 Somatic dy sfunction of pelvic region 251960000 M99.05 Pain of right wrist 3169 187492 78375 M25.531 [id number] Xavier Avalos DC [facility] [address] [place] [address] 09/22/2024 10:42:46 09/25/2024 13:25:04 Neck pain 19192791 M54.2 Pain in th oracic spine 178206538 M54.6 Lumbar seg mental dysfunction 146734719 M99.03 Pain of right wrist 3169 394277 15416 M25.531 Somatic dy sfunction of pelvic region 405992641 M99.05 Thoracic s egmental dysfunction 685110268 M99.02 Cervical s egmental dysfunction 289698013 M99.01 Health Concerns Section Related Observation LastModified by Organization Detai ls LastModified Time None Recorded Concern Status LastModified by Organization Details LastModified Time None Recorded Advance Directives Directive None Recorded Payers Encounter Date Sequence Insurance Name Policy Number Policy Burris Covered Member ID Burris Member ID Guarantor Name 09/18/2024 [facility] [id number] Zen Moise 09/22/2024 [employer] [id number] [facility] Notes Date Note Type Note Provider Name and Address Organization Details Recorded Time 09/18/2024 text/html HPI - Spine ComplaintsReported bypatient.Location:cerv ical ; thoracic ; lumbar ; sacral Quality:dull; stiffness; tightness Severity:worsening;pain level 5/10 Duration:few weeks Timing:acute Context:atraumatic; overuse Alleviating Factors:nonsteroidal anti-inflammatory; stretching Aggravating Factors:sitting; school work, computer use, video games Previous Injury:no prior back injury; no prior malignancy Prior Imaging:none LD Adams, [place], [address], [facility] 09/18/2024 12:56:27 09/22/2024 text/html HPI - Spine ComplaintsReported bypatient.Location:cerv ical ; thoracic ; lumbar ; sacral Quality:dull; stiffness; tightness Severity:improving;pain level 3/10 Duration:few weeks Timing:acute Context:atraumatic; overuse Alleviating Factors:nonsteroidal anti-inflammatory; stretching Aggravating Factors:sitting; school work, computer use, video games Previous Injury:no prior back injury; no prior malignancy Prior Imaging:none [address], [place], [address], [facility] 09/22/2024 18:09:56
--- OUTSIDE RECORDS SUMMARY | 2024-10-24 04:54 | XMS_ITS | Clinical Summary ---
Author Organization [facility] Address [address] [place] [address]. 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
--- OUTSIDE RECORDS SUMMARY | 2024-10-24 04:54 | XMS_ITS | Clinical Summary ---
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 Blood BLOOD SPECIMEN / Unknown Venipuncture / Unknown 02/17/2023 9:50 AM CDT 02/17/2023 9:53 AM CDT Yehuda Villegas MD SEND OUTS Final Result [facility] [address] [place] [address], from Last 3 Months or Most Recently Relevant to Health [place] [address] [place] [id number] Care Teams Hose Tender Relationship Specialty Start Date End Date Yehuda Villegas MD [address], [place] [id number] PCP - General Internal Medicine 02/17/23
--- OUTSIDE RECORDS SUMMARY | 2024-10-24 04:54 | XMS_ITS | Continuity of Care Document ---
Author Organization [facility] EVELYN winkler [facility] Address [address] [place] [address] Assessment No assessment recorded. Plan of Treatment [...] Details Recorded Time Pain in thoracic spine 495544525 Active 2024 LD Adams[address], [place], [address], [facility] 12:47:44 Neck pain 33916994 Active 2024 Xavier Avalos DC [address] [place], [address], [facility] 12:47:44 Spasm of back muscles 602719324 Active 2024 Xavier Avalos DC [address] [place], [address] , [facility] 12:47:44 Cervical segmental dysfunction 718207092 Active 2024 Xavier Avalos DC [address] [place], [address], [facility] 12:47:44 Low back pain 070347058 Active 2024 Xavier Avalos DC [address], [place], [address], [facility] 12:47:44 Thoracic segmental dysfunction 149590017 Active 2024 Xavier Avalos , LD [address], [place], [address], [facility] 12:47:44 Lumbar segmental dysfunction 523103676 Active 2024 Xavier Avalos , LD [address], [place], [address], [facility] 12:47:45 Somatic dysfunction of pelvic region 241001183 Active 2024 Xavier Avalos DC [address], [place], [address], [facility] 12:48:09 Pain of right wrist 3741069058923 00 Active 2024 Xavier Avalos , LD [address], [place], [address], [facility] 12:48:18 Problem Notes None recorded. Procedures Surgical History Date Name Laterality Status Provider Name and Address Organization Details Recorded Time 09/23/19 67972: Spinal manipulation, 3 to 4 regions completed LD Adams[address], [place], [address], [facility] 09/22/2024 10:50:11 09/23/19 25 38433: Non-spinal manipulation completed LD Adams[address], [place], [address], [facility] 09/22/2024 10:50:11 09/23/19 25 26650: Electrical Stimulation (unattended) completed LD Adams[address], [place], [address], [facility] 09/22/2024 10:50:10 09/23/19 25 22544: Therapeutic Exercise completed LD Adams[address], [place], [address], [facility] [employer] 09/22/2024 18:01:03 09/19/19 10425: Spinal manipulation, 3 to 4 regions completed Xavier Avalos, DC [address], [place], [address], [facility] [employer] [facility] 09/18/2024 12:53:42 09/19/19 51649: Non-spinal manipulation completed Xavier Avalos, LD [address], [place], [address], [facility] [employer] [facility] 09/18/2024 12:54:16 09/19/19 63471: New patient E/M completed Xavier Avalos, LD [address], [place], [address], [facility] [employer] [facility] 09/18/2024 12:53:36 09/19/19 53447: Electrical Stimulation (unattended) completed Xavier Avalos, LD [address], [place], [address], [employer] [facility] 09/18/2024 12:53:51 Imaging Results None recorded. [...] SNOMED-CT Code Diagnosis ICD10 Code Diagnosis Note [id number] Xavier Avalos DC [facility] [address] [place] [address] 09/18/2024 10:44:30 09/18/2024 19:50:07 Cervical segmental dysfunction 658972052 M99.01 Neck pain 75891582 M54.2 Lumbar seg mental dysfunction 320772420 M99.03 Thoracic s egmental dysfunction 429127365 M99.02 Pain in th oracic spine 777306145 M54.6 Somatic dy sfunction of pelvic region 194092863 M99.05 Pain of right wrist 3169 484676 58122 M25.531 [id number] Xavier Avalos DC [facility] [address] [place] [address] 09/22/2024 10:42:46 09/25/2024 13:25:04 Neck pain 27730381 M54.2 Pain in th oracic spine 439505105 M54.6 Lumbar seg mental dysfunction 870504167 M99.03 Pain of right wrist 3169 514677 68159 M25.531 Somatic dy sfunction of pelvic region 308176810 M99.05 Thoracic s egmental dysfunction 648657002 M99.02 Cervical s egmental dysfunction 886908518 M99.01 Health Concerns Section Related Observation LastModified by Organization Detai ls LastModified Time None Recorded Concern Status LastModified by Organization Details LastModified Time None Recorded Payers Encounter Date Sequence Insurance Name Policy Number Policy Burris Covered Member ID Burris Member ID Guarantor Name 09/22/2024 [facility] Jose Maria [id number] Zen Moise Notes Date Note Type Note [...] malignancy Prior Imaging:none Xavier Avalos DC [address] [facility] , [place], [address], [facility] 09/22/2024 18:09:56
--- OUTSIDE RECORDS SUMMARY | 2024-10-24 04:54 | XMS_ITS | Continuity of Care Document ---
Author Organization [facility] EVELYN winkler [facility] Address [address] [place] [address] Assessment No assessment recorded. Plan of Treatment [...] Details Recorded Time Pain in thoracic spine 792234286 Active 2024 LD [address], [place], [address], [facility] 12:47:44 Neck pain 25926647 Active 2024 Xavier Avalos DC [address] [place], [address], [facility] 12:47:44 Spasm of back muscles 735000075 Active 2024 Xavier Avalos DC [address] [place], [address] , [facility] 12:47:44 Cervical segmental dysfunction 754159101 Active 2024 Xavier Avalos DC [address] [place], [address], [facility] 12:47:44 Low back pain 468306719 Active 2024 Xavier Avalos DC [address], [place], [address], [facility] 12:47:44 Thoracic segmental dysfunction 466269157 Active 2024 Xavier Avalos , LD [address], [place], [address], [facility] 12:47:44 Lumbar segmental dysfunction 547494169 Active 2024 Xavier Avalos , LD [address], [place], [address], [facility] 12:47:45 Somatic dysfunction of pelvic region 942532603 Active 2024 Xavier Avalos DC [address], [place], [address], [facility] 12:48:09 Pain of right wrist 4206193316156 00 Active 2024 Xavier Avalos , LD [address], [place], [address], [facility] 12:48:18 Problem Notes None recorded. Procedures Surgical History Date Name Laterality Status Provider Name and Address Organization Details Recorded Time 09/23/19 36550: Spinal manipulation, 3 to 4 regions completed LD Adams[address], [place], [address], [facility] 09/22/2024 10:50:11 09/23/19 25 14715: Non-spinal manipulation completed LD Adams[address], [place], [address], [facility] 09/22/2024 10:50:11 09/23/19 25 93599: Electrical Stimulation (unattended) completed LD Adams[address], [place], [address], [facility] 09/22/2024 10:50:10 09/23/19 25 76116: Therapeutic Exercise completed LD Adams[address], [place], [address], [employer] [facility] [employer] [facility] 09/22/2024 18:01:03 09/19/19 54617: Spinal manipulation, 3 to 4 regions completed Xavier Avalos, DC [address], [place], [address], [facility] [employer] [facility] 09/18/2024 12:53:42 09/19/19 97205: Non-spinal manipulation completed Xavier Avalos, LD [address], [place], [address], [facility] [employer] [facility] 09/18/2024 12:54:16 09/19/19 08838: New patient E/M completed Xavier Avalos, LD [address], [place], [address], [facility] [employer] [facility] 09/18/2024 12:53:36 09/19/19 36005: Electrical Stimulation (unattended) completed Xavier Avalos, LD [address], [place], [address], [facility] [facility] [employer] [facility] 09/18/2024 12:53:51 Imaging Results None recorded. Procedure [...] SNOMED-CT Code Diagnosis ICD10 Code Diagnosis Note [id number] LD Adams [facility] [address] [place] [address] 09/18/2024 10:44:30 09/18/2024 19:50:07 Cervical segmental dysfunction 549411313 M99.01 Neck pain 28605095 M54.2 Lumbar seg mental dysfunction 494779681 M99.03 Thoracic s egmental dysfunction 157795631 M99.02 Pain in th oracic spine 963282684 M54.6 Somatic dy sfunction of pelvic region 955520989 M99.05 Pain of right wrist 3169 961976 51768 M25.531 Health Concerns Section Related Observation LastModified by Organization Detai ls LastModified Time None Recorded Concern Status LastModified by Organization Details LastModified Time None Recorded Payers Encounter Date Sequence Insurance Name Policy Number Policy Burris Covered Member ID Burris Member ID Guarantor Name 09/18/2024 [facility] [id number] [facility] Notes Date Note Type Note Provider [...] Imaging:none Xavier Avalos DC [address] [place], [address], [facility] 09/18/2024 12:56:27
[2024-10-24 04:58] VITALS: BP 113/65; PULSE 71; RESP 16; TEMP 36.8; O2SAT 97; BMI 28.9
--- NOTE | 2024-10-24 05:26 | ED_ITS ---
HPI - General Adult General Chief complaint: Anxiety Stated complaint: trouble breathing/anxiety Time Seen by Provider: 10/24/24 05:11 Source: patient Mode of arrival: ambulatory Limitations: no limitations History of Present Illness HPI narrative: 24-year-old male presents to the emergency department for evaluation of feeling like his throat was closing when he was asleep. He reports that he has not been sleeping as well as usual and typically does use melatonin for this. Takes 3 mg nightly. He says that he has been sleeping on average 3-5 hours the last few nights. It sounds as though he has a psychiatry provider and is taking ADHD medications. He has not made contact with his primary provider to discuss this insomnia. He reports that he had a telehealth visit and was diagnosed with an upper respiratory infection. He has had no fever. There is no shortness of breath on exertion. He does have a mild postnasal drip. He is eating and drinking normally. He has no productive cough, no obvious illness exposures. It sounds as though he was prescribed some Tessalon Perles for the URI. No history of chronic lung disease or immunocompromise status. Patient awoke with a feeling of sudden spasm in his throat, he was worried he would choke in his sleep and . He clearly got out of bed, called for a ride and made it to the emergency department, does not seem to have insight that those are all clear indications that his airway really was okay. Review of the records shows this is his 3rd ED visit in the middle of the night for questionably rational visits that do seem to stem from anxiety. He is not verbalizing any suicidal thoughts, admitting to any kind of substance abuse or psychosis. Past medical history appears notable for ADHD, anxiety related ED visits. Allergy to cefprozil. ROS is notable for the HEENT symptoms and he does admit to some anxiety symptoms when I bring it up specifically. Otherwise denies acute respiratory, cardiovascular, neurological or other mental health changes today. Related Data Home Medications ?Medication ?Instructions ?Recorded ?Confirmed dextroamphetamine-amphetamine ER 20 mg PO QAM 09/04/24 10/24/24 20 mg 24hr capsule,extend release (Adderall XR) melatonin 3 mg capsule 3 mg PO ONCE 09/04/24 10/24/24 guanfacine 2 mg tablet 2 mg PO DAILY 10/24/24 10/24/24 Previous Rx's ?Medication ?Instructions ?Recorded docusate calcium 240 mg capsule 240 mg PO DAILY #30 caps 10/15/24 Allergies Allergy/AdvReac Type Severity Reaction Status Date / Time cefprozil (From Cefzil) Allergy Intermediate Hives Verified 09/04/24 12:18 [facility] Social History Smoking Status: Never smoker How often do you have a drink containing alcohol: never How often do you have six or more drinks on one occasion: Never AUDIT-C Alcohol total score: 0 Non-prescribed substance use: denies use service: No Exam Const: Vital Signs, click to edit/add: Vital Signs - 24 hr 10/24/24 04:58 Temperature 98.2 F Pulse Rate [Pulse Oximeter] 71 Respiratory Rate 16 Blood Pressure [Ri ght Upper Arm] 113/65 Pulse Oximetry 97 Oxygen Delivery Me thod Room Air Documenting provider has reviewed patient's vital signs: yes Common normals: alert Other: Mildly anxious but redirectable. No psychosis. Cooperative. Well nourished, well hydrated. HENMT: Common normals: normocephalic, moist oral mucous membranes and dentition normal Head and scalp: normocephalic Other: Nares with mild clear mucus rhinorrhea, no signs of obstruction, foreign body or purulent drainage. Oropharynx with a mild clear mucus postnasal drip. No significant redness to the tonsillar pillars or significant enlargement of the tonsils. No exudate. Eye: Common normals: conjunctivae normal General eye: normal appearance of both eyes Conjunctiva: conjunctiva(e) normal Neck & C-Spine: Common normals: full ROM, no lymphadenopathy and no meningeal signs General: normal visual inspection Resp: Common normals: normal respiratory effort, no use of accessory muscles and clear to auscultation bilaterally Effort & inspection: able to speak in complete sentences Auscultation: clear to auscultation bilaterally Cardio: Common normals: regular rate, regular rhythm, S1 normal heart sound, S2 normal heart sound and no murmurs Rate: regular rate Rhythm: regular rhythm Heart sounds: S1 normal and S2 normal Extremity: Common normals: normal to inspection and normal capillary refill Neuro: Common normals: moves all extremities and no focal motor deficits Sensorium/orientation: alert Meningeal signs: no meningeal signs Speech: speech normal Gait (neuro): normal gait Psych: Common normals: thought process normal and speech normal Appearance: grossly normal Attitude: engaged Activity/motor behavior: appropriate eye contact Speech: normal speech Mood and affect: anxious Thought process: normal thought process Thought content: normal thought content Attention/concentration: attention grossly intact Memory/cognition: memory grossly intact Insight: fair Judgement: fair Skin: Common normals: no rashes or lesions noted Narrative: No signs of self injury or trauma. General skin exam: no rashes or lesions noted Course Course ED Course: 24-year-old male with postnasal drip in feeling of dry throat stickiness with sleep tonight. Likely having some amplified dry mouth from his prescribed medications. There are no sign of airway foreign body, airway compromise. Counseled patient that you really can not choke on air we are body will wake you up when it to tax mild soft tissue obstruction from mouth breathing, dryness, stickiness of the membranes or a mild postnasal drip. This can be frustrating but it is not dangerous. We discussed some tools of how to redirect and reassure herself in this specific situation. I encouraged him to get out of bed, drink a few oz of water, attempt to speak. It does not need to be to another person just in general. If he can speak full sentences, swallow, ambulate around the room, clearly his airway is in a safe place at that moment. I did let him know that he can increased melatonin up to 10 mg nightly without consequence and that it is okay to use Benadryl as an adjunct agent, appropriate doses reviewed. I counseled patient that this does seem to be his 3rd ED visit for anxiety related things. I think it is time that he check in with his mental health provider on management. Alarm symptoms that would warrant ED presentation for physical or mental health needs are reviewed. Written instructions are provided. I do not think adding p.r.n. anxiety medication is ideal for him since it does seem as though his symptoms are more frequent. He is not unsafe at this time and does not require hospitalization for his moods. Vital Signs Vital signs: Initial Vital Signs Temperature 98.2 F 10/24/24 04:58 Temperature Source Temporal Artery Scan 10/24/24 04:58 Pulse Rate 71 10/24/24 04:58 Respiratory Rate 16 10/24/24 04:58 Blood Pressure 113/65 10/24/24 04:58 Blood Pressure Mean 81 10/24/24 04:58 Blood Pressure Position Sitting 10/24/24 04:58 Pulse Oximetry 97 10/24/24 04:58 Oxygen Delivery Method Room Air 10/24/24 04:58 Vital Signs Temperature 98.2 F 10/24/24 04:58 Pulse Rate 71 10/24/24 04:58 Respiratory Rate 16 10/24/24 04:58 Blood Pressure 113/65 10/24/24 04:58 Pulse Oximetry 97 10/24/24 04:58 Oxygen Delivery Method Room Air 10/24/24 04:58 Temperature 98.2 F 10/24/24 04:58 Pulse Rate 71 10/24/24 04:58 Respiratory Rate 16 10/24/24 04:58 Blood Pressure 113/65 10/24/24 04:58 Pulse Oximetry 97 10/24/24 04:58 Oxygen Delivery Method Room Air 10/24/24 04:58 Discharge Plan Discharge Clinical Impression: Post-nasal drip, Panic disorder Patient Disposition: Home w/ Parent or Adult Condition: Improved Instructions: Panic Disorder (ED) Additional Instructions: As we discussed, your blood pressure, respiratory rate, oxygen levels, physical exam are all reassuring. This dry throat sensation you have from your mild postnasal drip is not dangerous to you. It can be frustrating when your body weeks you up when you have mild illness. Thankfully, there are no signs of any dangerous condition. If the throat symptoms bother you, consider use of Vicks vapor rub at bedtime, picking up some nasal steroid spray to spray 1 spray in each nostril 2 times daily for the next couple of weeks. A humidifier close to your bed can also moist in the air to where you have less throat symptoms. There are no signs of a dangerous bacterial condition and the fear that you have about choking in your sleep on air is not valid. Thankfully, this is not really possible. Your body will wake you up when it detects that sticky dryness, consider the above remedies to lessen the chance of that happening. If you wake with these symptoms, get out of bed, drink a few sips of water and attempt to speak. If you can speak a full sentence, swallow water and ambulate, you really are safe. I think the bigger issue is that your anxiety does seem to be getting the best of you and I think it is time that you make an appointment with a primary care provider to discuss it further. In the interim, there are no signs that you need to be hospitalized for your moods. As we discussed, you may take up to 10 mg of melatonin per night. You may also combine it with 25-50 mg of Benadryl if needed to help you sleep nightly. Do not take those medications within 4 hours of needing to wake up as it may make you drowsy. Remember to avoid caffeine within 6 hours of bedtime and to exercise most days so that your body has a better time setting it is sleep/wake cycle. You are fully cleared to return to work/school duties with no restrictions. Activity Level: No Restrictions Discharge Diet: Regular Prescriptions: No Action dextroamphetamine-amphetamine [Adderall XR] 20 mg capsule,extended release 24hr 20 mg PO QAM melatonin 3 mg capsule 3 mg PO ONCE docusate calcium 240 mg capsule 240 mg PO DAILY Qty: 30 1RF guanfacine 2 mg tablet 2 mg PO DAILY Follow Up/Referrals: Provider,Not a Local [Primary Care Provider] - Stand Alone Forms: [employer] Info Instructions
--- OUTSIDE RECORDS SUMMARY | 2024-10-24 05:28 | XMS_ITS | Clinical Summary ---
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 Blood BLOOD SPECIMEN / Unknown Venipuncture / Unknown 02/17/2023 9:50 AM CDT 02/17/2023 9:53 AM CDT Yehuda Villegas MD SEND OUTS Final Result [facility] [address] [place] [address], from Last 3 Months or Most Recently Relevant to Health Maintenance Insurance [id number] Care Teams Truck Mechanic Relationship Specialty Start Date End Date Yehuda Villegas MD [address] [place], [place] [id number] PCP - General Internal Medicine 02/17/23
--- OUTSIDE RECORDS SUMMARY | 2024-10-24 05:28 | XMS_ITS | Clinical Summary ---
Author Organization [facility] Address [address] [place] [address]. 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
== END 2024-10-24 05:37 | disposition home or self-care (01) ==
LOC: ED 05:27
PROVIDERS: Emergency Provider Family Medicine
DX: R09.82 Postnasal drip (principal); F41.0 Panic disorder [episodic paroxysmal anxiety]
CPT/HCPCS: 99283; 99284